=== PATIENT | female | born 1980 ===

== ENCOUNTER 2021-11-22 05:35 | Observation (INO) ==
[2021-11-22] MEDS ORDERED: ceFAZolin 2,000 MG/50 ML DUPLEX IV ONE (06:00)
[2021-11-22] MEDS ORDERED: LACTATED RINGERS 1,000 ML IV SCH (06:00)
[2021-11-22] MEDS ORDERED: VANCOMYCIN INJ 1,000 MG in SODIUM CHLORIDE 0.9% 250 ML IV ONE ×2 (06:00→17:01)
[2021-11-22] MEDS ORDERED: ACETAMINOPHEN 500 MG TABLET ONE (06:03)
[2021-11-22] MEDS ORDERED: FAMOTIDINE 20 MG TABLET ONE (06:03)
[2021-11-22] MEDS ORDERED: propofoL 200 MG/20 ML VIAL IV ONE (06:21)
[2021-11-22] MEDS ORDERED: MIDAZOLAM 2 MG/2 ML VIAL ONE (06:21)
[2021-11-22] MEDS ORDERED: LIDOCAINE 2% 5 ML VIAL ONE (06:21)
[2021-11-22] MEDS ORDERED: fentaNYL 100 MCG/2 ML VIAL ONE ×2 (06:21→08:12)
[2021-11-22] MEDS ORDERED: LIDOCAINE 1% 5 ML VIAL ONE (06:28)
[2021-11-22] MEDS ORDERED: ROPIVACAINE 0.5% 30 ML VIAL ONE (06:28)
[2021-11-22] MEDS ORDERED: DIAZEPAM 5 MG TABLET PO ONE (06:35)
[2021-11-22 06:39] LABS: PT Patient Result 11.1 SECS (10.5-12.0); Partial Thromboplastin Time 27.6 SECS (23.8-32.1)
[2021-11-22] MEDS ORDERED: BACITRACIN OINT 0.9 GM PACK TOP ONE (06:42)
[2021-11-22] MEDS ORDERED: GABAPENTIN 400 MG CAPSULE PO ONE (06:45)
[2021-11-22] MEDS ORDERED: ACETAMINOPHEN 500 MG TABLET PO ONE (06:45)
[2021-11-22] MEDS ORDERED: FAMOTIDINE 20 MG TABLET PO ONE (06:45)
[2021-11-22] MEDS ORDERED: hydrALAZINE 20 MG/1 ML VIAL ONE (06:50)
[2021-11-22] MEDS ORDERED: GLUCAGON 1 MG VIAL IM PRN (06:55)
[2021-11-22] MEDS ORDERED: DEXTROSE 50% 25 GM/50 ML SYRINGE IV PRN (06:55)
[2021-11-22] MEDS ORDERED: INSULIN REGULAR 100 UNIT/ML SUBCUT ONE (06:56)
[2021-11-22] MEDS ORDERED: ONDANSETRON 4 MG/2 ML VIAL ONE (07:21)
[2021-11-22] MEDS ORDERED: DEXAMETHASONE 4 MG/1 ML VIAL ONE (07:21)
[2021-11-22] MEDS ORDERED: ROCURONIUM 50 MG/5 ML VIAL IV ONE (07:21)
[2021-11-22] MEDS ORDERED: GLYCOPYRROLATE 0.4 MG/2 ML VIAL ONE (08:14)
[2021-11-22] MEDS ORDERED: NEOSTIGMINE 10 MG/10 ML VIAL ONE (08:14)
[2021-11-22] MEDS ORDERED: SEVOFLURANE 1 UNIT/15 MINUTE INH ONE (08:15)
[2021-11-22] MEDS ORDERED: SODIUM CHLORIDE 0.9% 100 ML IV ONE (08:15)
[2021-11-22] MEDS ORDERED: LACTATED RINGERS 1,000 ML IV ONE (08:15)
[2021-11-22] MEDS ORDERED: SUCCINYLCHOLINE 200 MG/10 ML VIAL ONE (08:15)
[2021-11-22] MEDS ORDERED: PHENYLEPHRINE 1 MG/10 ML SYRINGE IV ONE (08:48)
[2021-11-22] MEDS ORDERED: ONDANSETRON 4 MG/2 ML VIAL IV PRN ×2 (09:01→09:23)
[2021-11-22] MEDS ORDERED: MORPHINE 2 MG/1 ML SYRINGE IV PRN ×2 (09:01)
[2021-11-22] MEDS ORDERED: ZALEPLON 5 MG CAPSULE PO PRN (09:01)
[2021-11-22] MEDS ORDERED: diphenhydrAMINE CAP 25 MG CAPSULE PO PRN (09:01)
[2021-11-22] MEDS ORDERED: MAGNESIUM HYDROXIDE SUSP 30 ML UDCUP PO PRN (09:01)
[2021-11-22] MEDS ORDERED: HYDROmorphone 2 MG/1 ML VIAL ONE (09:22)
[2021-11-22] MEDS: HYDROmorphone 2 MG/1 ML VIAL IV PRN ×2 (09:22→09:45)
[2021-11-22 09:27] LABS: Bilirubin,Urine Negative (Negative); Blood, Urine Negative (Negative); Glucose,Urine (UA) >=500 mg/dL (Negative); Ketones,Urine Negative (Negative); Mucus,Urine Occasional /LPF (Occasional); Nitrite,Urine Negative (Negative); Protein,Urine 30 MG/DL; RBC,Urine 2 /HPF (0-4); Squamous Epithelial Cell,Urine Occasional /HPF (0-10); Urine Appearance CLEAR (Clear); Urine Color Yellow (Yellow); Urine Specific Gravity 1.024 (1.001-1.035)
[2021-11-22] MEDS ORDERED: KETOROLAC 30 MG/1 ML VIAL ONE (10:57)
[2021-11-22] MEDS: KETOROLAC 15 MG/1 ML VIAL IV SCH ×3 (10:58→21:15)
[2021-11-22] MEDS: INSULIN LISPRO 100 UNIT/ML SUBCUT SCH ×3 (11:30→21:16)
[2021-11-22] MEDS: LACTATED RINGERS 1,000 ML IV SCH (16:40)
[2021-11-22] MEDS: ceFAZolin 2,000 MG/50 ML DUPLEX IV SCH ×2 (16:41→21:15)
[2021-11-22] MEDS ORDERED: LOSARTAN 50 MG TABLET PO SCH (21:00)
[2021-11-22] MEDS ORDERED: INSULIN GLARGINE 100 UNIT/ML SUBCUT SCH (21:00)
[2021-11-22] MEDS: APIXABAN 2.5 MG TABLET PO SCH (21:14)
[2021-11-22] MEDS: DOCUSATE SODIUM 100 MG CAPSULE PO SCH (21:14)
[2021-11-22] MEDS: GABAPENTIN 300 MG CAPSULE PO SCH (21:14)
[2021-11-23] MEDS: LACTATED RINGERS 1,000 ML IV SCH ×2 (00:33→03:09)
[2021-11-23] MEDS: KETOROLAC 15 MG/1 ML VIAL IV SCH (03:09)
[2021-11-23 04:43] LABS: Basophils % 0.3 % (0.0-0.8); Eosinophils # 0.1 10*3/uL (0.0-0.87); Eosinophils % 1.2 % (0.00-10.9); Hematocrit 30.2 VOL% (35.7-47.0); Hemoglobin 9.3 GM/DL (12.0-16.0); Immature Granulocytes % 0.4 %; Immature Granulocytes Absolute 0.03 #; Lymphocytes # 1.5 10*3/uL (1.4-4.0); Lymphocytes % 21.4 % (21.3-54.2); Mean Corpuscular HGB Conc 30.8 GM/DL (32-36); Mean Corpuscular Volume 73.1 FL (87-102); Mean Platelet Volume 10.8 FL (9.6-12.0); Monocytes % 9.1 % (1.7-12.7); Neutrophils % 67.6 % (38.7-73.9); Platelet Count 196 T/CUMM (130-400); Red Blood Count 4.13 MC/CUMM (3.8-5.5); White Blood Count 6.9 T/CUMM (4-12)
[2021-11-23 05:09] LABS: Eosinophils 1 % (0-10); Hypochromia 1+; Lymphocytes 24 % (20-55); Microcytosis 1+; Segmented Neutrophils 67 % (50-85); Total Cells Counted 100
[2021-11-23 05:10] LABS: Platelet Estimate Adequate
[2021-11-23 05:10] LABS: Osmolality,Calculated 280.7 MOS/KG (273-304); Potassium 3.2 MMOL/L (3.5-5.1)
[2021-11-23] MEDS: INSULIN LISPRO 100 UNIT/ML SUBCUT SCH ×2 (08:25→12:27)
[2021-11-23] MEDS: DOCUSATE SODIUM 100 MG CAPSULE PO SCH (08:26)
[2021-11-23] MEDS: APIXABAN 2.5 MG TABLET PO SCH (08:26)
[2021-11-23] MEDS: GABAPENTIN 300 MG CAPSULE PO SCH (08:26)
[2021-11-23] MEDS ORDERED: amLODIPine 5 MG TABLET PO SCH (09:00)
[2021-11-23] MEDS ORDERED: hydroCHLOROthiazide 25 MG TABLET PO SCH (09:00)
[2021-11-23 12:17] VITALS: BP 137/65
== END 2021-11-23 15:53 | disposition home health service (06) ==
LOC: INTOOBSV 05:35 → N.SDSINP 05:35 → N.3E 11:45
PROVIDERS: ADMIT Orthopaedic Surgery; ATTEND Orthopaedic Surgery